=== PATIENT | male | born 1955 | race Caucasian/White ===

== ENCOUNTER 2019-06-19 12:57 | Emergency (ER) | payer OTHER, SELFPAY ==
--- NOTE | ~2019-06-19 | XR_ITS ---
XR chest 2V DATE: 06/19/2019 13:33 INDICATION: Shortness of breath. COPD. Daily oxygen. Smoker. TECHNIQUE: 2 views COMPARISON: None FINDINGS: Bilateral hyperinflation with relative flattening of the diaphragm, consistent with history of COPD. No pulmonary infiltrate or consolidation, pleural effusion or pulmonary vascular congestion or pneumothorax. Normal heart size. No hilar or mediastinal enlargement. Old healed right rib fractures. IMPRESSION: No active cardiopulmonary disease Reviewed, dictated and finalized at location A.
[2019-06-19 13:12] VITALS: BP 97/59; PULSE 94; RESP 28; TEMP 36.5; O2SAT 100
--- NOTE | 2019-06-19 13:20 | ED.URI ---
HPI - URI/Sore Throat General Chief Complaint: Upper Respiratory Infection Stated Complaint: trouble breathing Time Seen by Provider: 06/19/19 13:20 Source: patient and family Mode of arrival: ambulatory Limitations: no limitations History of Present Illness HPI Narrative: Elia Wheat is a 64 yo male with a PMH of COPD, high cholesterol, HTN, hypothyroid, hypomagnesia, who comes to express care with shortness of breath. Patient is on 3 L O2 at home currently has 100% O2 sats. Was seen on 323 at the ER-started on prednisone taper, no antibiotics, tested COVID negative. Uses daily nebs- sob has not improved much since then Related Data Home Medications Medication Instructions Recorded Confirmed Oxygen 3 l [place] DAILY 06/19/19 albuterol sulfate 2.5 mg INHALATION Q4H PRN 06/19/19 06/19/19 allopurinol 100 mg PO DAILY 06/19/19 06/19/19 aspirin 81 mg PO DAILY 06/19/19 06/19/19 carvedilol 12.5 mg PO BID 06/19/19 06/19/19 cyanocobalamin (vitamin B-12) 500 mcg PO DAILY 06/19/19 06/19/19 [Vitamin B-12] fenofibrate nanocrystallized 145 mg PO DAILY 06/19/19 06/19/19 levothyroxine 25 mcg PO DAILY 06/19/19 06/19/19 lovastatin 20 mg PO DAILY 06/19/19 06/19/19 magnesium oxide 400 mg PO QID 06/19/19 06/19/19 mometasone-formoterol [Dulera] 2 puff INHALATION Q12H 06/19/19 06/19/19 omeprazole magnesium [Prilosec OTC] 20 mg PO DAILY 06/19/19 06/19/19 ranitidine HCl 300 mg PO HS 06/19/19 06/19/19 sod.chlorid-potassium chloride 1 tablet PO DAILY 06/19/19 06/19/19 [Thermotabs] spironolactone 50 mg PO DAILY 06/19/19 06/19/19 Allergies Allergy/AdvReac Type Severity Reaction Status Date / Time Sulfa (Sulfonamide Allergy Rash Verified 06/19/19 13:41 Antibiotics) Review of Systems Review of Systems: Narrative: CONSTITUTIONAL: Denies fever, chills, sweats. EYES: Denies visual changes, redness, discharge. ENT: Denies rhinorrhea, congestion, sore throat, otalgia. CARDIOVASCULAR: Denies chest pain, palpitations, edema. RESPIRATORY: Has dyspnea, wheezing, dry cough GASTROINTESTINAL: Denies abdominal pain, nausea, vomiting, diarrhea. GENITOURINARY: Denies dysuria, hematuria, abnormal discharge SKIN: Denies rash or itching. NEUROLOGIC: Denies numbness, or focal weakness. PSYCHIATRIC: Denies anxiety or depression. PMFSH Family History Family History Other Hypertension Social History Social History (Updated 06/19/19 @ 13:26 by Trinity Pérez CNP) Smoking packs per day: 0.5 Smoking cigarettes per day: 10.0 Years smoked: 40 Smoking pack-years: 20.00 Smoking status: Current every day smoker Tobacco type: cigarettes Alcohol intake: current Comments At time of signature, I agree with nursing past medical, surgical, social and family history. There is no relevant family history pertinent to the presenting complaint. Exam Narrative: Exam Narrative: GENERAL: This is a well-nourished, well-developed patient, in moderate distress. afebrile, HEAD: normocephalic, atraumatic. EYES:Sclera clear/white. Vision is grossly intact. EARS: External ears normal. Hearing grossly intact. NOSE: External nose normal with nasal discharge, nares without redness, has rhinorrhea. THROAT: Mucous membranes moist, posterior pharynx mild erythema NECK: Neck supple, non-tender CARDIOVASCULAR: Regular rate and rhythm without murmurs, gallops, or rubs. RESPIRATORY: Diminished to auscultation. Breath sounds equal bilaterally. No wheezes, rales, or rhonchi. dry cough, tachypnic even though O2 100% at 3 l GASTROINTESTINAL: Abdomen soft, non-tender, SKIN: warm, intact with no suspicious lesions or rash, good texture and turgor. NEURO: awake, alert, and oriented to person, place and time. There were no obvious focal neurologic abnormalities. Steady gait EXTREMITIES: Normal range of motion. BACK: Nontender without deformity Course Course Emergency Course: Xray- hyperinflation, no con
[2019-06-19 14:00] VITALS: BP 100/62; RESP 24
== END 2019-06-19 14:00 | disposition home or self-care (01) ==
PROVIDERS: Emergency Provider Nurse Practitioner; PCP Internal Medicine
DX: J43.1 Panlobular emphysema (principal); F17.210 Nicotine dependence, cigarettes, uncomplicated; E78.00 Pure hypercholesterolemia, unspecified; I10 Essential (primary) hypertension; E03.9 Hypothyroidism, unspecified; Z99.81 Dependence on supplemental oxygen; E83.42 Hypomagnesemia
CPT/HCPCS: 71046; 99203; G0463